=== PATIENT | female | born 2000 ===

== ENCOUNTER 2020-12-15 21:27 | Outpatient (CLI) | payer OTHER ==
[2020-12-15] MEDS ORDERED: NITROFURANTOIN100 M1 PO (21:48)
[2020-12-15] MEDS ORDERED: ATABEX DHA 200200 MG PO (21:49)
[2020-12-15] MEDS ORDERED: DIALYVITE 800-1 EACH PO (21:50)
== END 2020-12-16 18:22 | disposition home or self-care (01) ==
LOC: OBS/DEL 21:27
PROVIDERS: ATTEND Obstetrics & Gynecology
DX: O26.842 Uterine size-date discrepancy, second trimester (principal); O60.02 Preterm labor without delivery, second trimester; O26.892 Other specified pregnancy related conditions, second trimester; R10.2 Pelvic and perineal pain; O34.12 Maternal care for benign tumor of corpus uteri, second trimester; O09.892 Supervision of other high risk pregnancies, second trimester; Z3A.19 19 weeks gestation of pregnancy

== ENCOUNTER 2021-01-03 13:08 | Outpatient (CLI) | payer OTHER ==
[~2021-01-03 13:08] MED LIST: ATABEX DHA 200200 MG PO; DIALYVITE 800-1 EACH PO; NITROFURANTOIN100 M1 PO
== END 2021-01-03 14:43 | disposition home or self-care (01) ==
LOC: PRENATAL 13:08
PROVIDERS: ATTEND Obstetrics & Gynecology Maternal & Fetal Medicine
DX: O35.0XX1 Maternal care for (suspected) central nervous system malformation in fetus, fetus 1 (principal); O35.3XX1 Maternal care for (suspected) damage to fetus from viral disease in mother, fetus 1; O98.512 Other viral diseases complicating pregnancy, second trimester; O34.12 Maternal care for benign tumor of corpus uteri, second trimester; Z36.89 Encounter for other specified antenatal screening; Z3A.21 21 weeks gestation of pregnancy

== ENCOUNTER 2021-05-09 16:33 | Inpatient (IN) | payer OTHER ==
[~2021-05-09] VITALS: Ht 157.5 cm; Wt 72.6 kg
== END 2021-05-12 15:48 | disposition home or self-care (01) | DRG 807 ==
LOC: LDR 16:33 → OB/GYN 05-10 00:09
PROVIDERS: ADMIT Obstetrics & Gynecology; ATTEND Obstetrics & Gynecology
PROC: 10E0XZZ Delivery of Products of Conception, External Approach (ICD-10-PCS; principal; 2021-05-09)
PROC: 4A1HXCZ Monitoring of Products of Conception, Cardiac Rate, External Approach (ICD-10-PCS; 2021-05-09)
DX: O80 Encounter for full-term uncomplicated delivery (principal); Z37.0 Single live birth; Z3A.39 39 weeks gestation of pregnancy; Z20.822 Contact with and (suspected) exposure to COVID-19